=== PATIENT | female | born 1960 | race Caucasian/White ===

== ENCOUNTER → 2016-10-24 | Outpatient (REF) | payer MEDICARE, OTHER ==
[~2016-10-24] MED LIST: BACT800T5 PO; BELL16.218 PR; PERC5TAB6 PO
[2016-10-24 20:01] LABS: CALCIUM OXALATE CRYSTALS SMALL
[2016-10-27 14:08] LABS: Candida species Negative (Negative); Gardnerella vaginalis Negative (Negative); Trichamonas vaginalis Negative (Negative)
== END ==
LOC: M SMT 16:52
PROVIDERS: ATTEND Specialist
DX: R31.29 Other microscopic hematuria (principal); N76.0 Acute vaginitis

== ENCOUNTER → 2024-03-01 | Outpatient (REF) | payer MEDICARE, OTHER ==
[~2024-03-01] MED LIST changes: +PERC5TAB12 PO; -PERC5TAB6 PO
[2024-03-01 18:14] LABS: APPEARANCE, URINE CLEAR (CLEAR); BACTERIA, URINE AUTO NEGATIVE (NEGATIVE); BILIRUBIN, URINE AUTO NEGATIVE (NEGATIVE); BLOOD, URINE BLOOD 2+ (NEGATIVE); COLOR, URINE STRAW (YELLOW); GLUCOSE, URINE (UA) AUTO NEGATIVE (NEGATIVE); KETONE, URINE AUTO NEGATIVE (NEGATIVE); LEUKOCYTE ESTERASE, URINE AUTO NEGATIVE (NEGATIVE); NITRITE, URINE AUTO NEGATIVE (NEGATIVE); PROTEIN, URINE AUTO NEGATIVE (NEGATIVE); RBC, URINE AUTO 1 /HPF (0-3); SPECIFIC GRAVITY URINE AUTO 1.009 (1.002-1.035); SQUAMOUS EPITHELIAL CELL UR AU 0 /HPF (0-6); UROBILINOGEN, URINE AUTO 0.2 mg/dL (0.0-2.0); WBC, URINE AUTO 0 /HPF (0-3)
== END ==
LOC: M SMT 17:00
PROVIDERS: ATTEND Nurse Practitioner Family
DX: N30.10 Interstitial cystitis (chronic) without hematuria (principal)